=== PATIENT | female | born 1950 | race Caucasian/White ===

== ENCOUNTER → 2020-01-15 | Outpatient (CLI) | payer MEDICARE, OTHER ==
--- NOTE | 2020-01-16 14:10 | PE ---
EXAMINATION TYPE: PET CT fusion skull to thigh DATE OF EXAM: 01/15/2020 COMPARISON: No prior films at this location. Prior PET/CT: No prior films at this location HISTORY: Head and neck cancer TECHNIQUE: Following the intravenous administration of 10.2 mCi of F-18 FDG, whole body images are p erformed from the skull base to the midthigh. Images are reviewed on the computer in the coronal, ax ial, and sagittal planes. Reconstructed rotating images are created on independent workstation and r eviewed on the computer. A localization and attenuation correction CT is performed in conjunction w ith the PET scan. DLP: 267.3 mGycm SCAN: Initial Blood glucose: 87 mg/dL Average Mediastinum SUV: 1.12 Average Liver SUV: 1.5 FINDINGS: NECK: There is marked increased radiotracer within the regions of the bilateral parotid glands. The right this has an SUV value of 17.33. On the left says an SUV value of 13.91. Borders are irregular. There is some extension medially to the medial portion of the parotid regions bilaterally. There is some focal uptake in wall diameters ranging within SUV value of 9.54. A small punctate area of increased uptake is in the posterior lateral right lower neck. Image 47. Thi s has an SUV of 7.5 suspicious for small lymph node metastasis. At the level of the vocal cords posterior to the sternocleidomastoid muscle and a biopsy clip there i s some focal radiotracer accumulation within SUV value 6.49. In the coronal plane this may be direct extension from superior. Image 54. Additionally, supraclavicular adenopathy some of which is enlarged as on the right. The more anterior smaller area measures 7.03 SUV with the larger area measuring 7.7 2 SUV. A left supraclavicular lymph node is increased radiotracer on image 59 with an SUV value of 8. 27. THORAX: No suspicious uptake. A somewhat prominent pretracheal lymph node has an SUV value 1.29 which may be inflammatory. Significant uptake is not identified. ABDOMEN: No suspicious uptake PELVIS: No suspicious uptake. Normal bowel activity appears to be present. OSSEOUS STRUCTURES: Some mild inflammatory type uptake appears to be at the left acromioclavicular ju nction. Mild bilateral shoulder degenerative type uptake may be present. LOCALIZATION CT: There is an enlarged lymph node anterior to the parotid gland in the left submandibu lar region. CT image 38 of 83 which is enlarged at 1.0 cm. This has some minimal uptake adjacent to t he marked density within the parotid. This measures 5.28 suspicious for metastatic disease. A contral ateral lymph node measuring 0.8 cm lateral to the right is not significant uptake. Enlarged right sub mandibular lymph node does not have abnormal uptake there is an enlarged 1.[address] imag e 46 of 83. No abnormal uptake is in the submental lymph nodes COMPARISON: None IMPRESSION: 1. Marked uptake within the regions of the masses of the parotid glands compatible with neoplasm. 2. Additional supraclavicular adenopathy with elevated SUV values discussed above suspicious for meta static lesions. 3. Mild uptake at the bilateral shoulders likely related to degenerative changes.
== END | disposition home or self-care (01) ==
LOC: RADPETMAIN 13:27
PROVIDERS: ATTEND Internal Medicine Hematology & Oncology
DX: R59.9 Enlarged lymph nodes, unspecified (principal); C76.0 Malignant neoplasm of head, face and neck
CPT/HCPCS: 78815; A9552